=== PATIENT | female | born 1965 | race Hispanic/Latino ===

== ENCOUNTER 2017-09-29 08:31 | Day surgery (SDC) | payer BC ==
[~2017-09-29] VITALS: Ht 144.8 cm; Wt 56.7 kg
[~2017-09-29 08:31] MED LIST: LOVASTATIN10 M1 PO; METFORMIN500 MG PO; PREVACID15 M3 PO; VICTOZA18 MG/3 ML SC
[2017-09-29 12:01] VITALS: BP 106/63
== END 2017-09-29 12:10 | disposition home or self-care (01) | DRG 951 ==
LOC: ENDO 08:31
PROVIDERS: ATTEND Surgery
PROC: 0DBH8ZX Excision of Cecum, Via Natural or Artificial Opening Endoscopic, Diagnostic (ICD-10-PCS; principal; 2017-09-29)
DX: Z12.11 Encounter for screening for malignant neoplasm of colon (principal); K63.5 Polyp of colon; K57.30 Diverticulosis of large intestine without perforation or abscess without bleeding; E11.9 Type 2 diabetes mellitus without complications; I10 Essential (primary) hypertension

== ENCOUNTER 2024-06-12 06:34 | Day surgery (SDC) | payer BC ==
[~2024-06-12] VITALS: Ht 144.8 cm; Wt 59.0 kg
[~2024-06-12 06:34] MED LIST changes: +ACTOS45 MG PO; +CRESTOR40 MG PO; +JARDIANCE25 MG PO; +METFORMIN500 M2 PO; +NOVOLIN N100 UNIT SC; +OMEPRAZOLE DR40 MG PO; +TRESIBA100 UNIT/M SC
[2024-06-12] MEDS ORDERED: FAMOTIDINE 10MG/ML 2ML SDV IV ONE (06:40)
[2024-06-12] MEDS ORDERED: SODIUM CHLORIDE 0.9% 1,000 ML IV ONE (06:40)
[2024-06-12 08:38] VITALS: BP 112/61
[2024-06-12] MEDS ORDERED: PROPOFOL 200 MG/20 ML VIAL IV ONE (12:57)
[2024-06-12] MEDS ORDERED: GLYCOPYRROLATE 0.2 MG/ML IV ONE (12:57)
== END 2024-06-12 08:58 | disposition home or self-care (01) | DRG 951 ==
LOC: ENDO 06:34 → ORM 08:30 → ENDO 08:58 → ORM 12:25
PROVIDERS: ATTEND Internal Medicine Gastroenterology
PROC: 0DJD8ZZ Inspection of Lower Intestinal Tract, Via Natural or Artificial Opening Endoscopic (ICD-10-PCS; principal; 2024-06-12)
PROC: 0DB98ZX Excision of Duodenum, Via Natural or Artificial Opening Endoscopic, Diagnostic (ICD-10-PCS; 2024-06-12)
PROC: 0DB78ZX Excision of Stomach, Pylorus, Via Natural or Artificial Opening Endoscopic, Diagnostic (ICD-10-PCS; 2024-06-12)
PROC: 0DB58ZX Excision of Esophagus, Via Natural or Artificial Opening Endoscopic, Diagnostic (ICD-10-PCS; 2024-06-12)
DX: Z12.11 Encounter for screening for malignant neoplasm of colon (principal); K64.8 Other hemorrhoids; K57.30 Diverticulosis of large intestine without perforation or abscess without bleeding; K21.00 Gastro-esophageal reflux disease with esophagitis, without bleeding; K29.50 Unspecified chronic gastritis without bleeding; K44.9 Diaphragmatic hernia without obstruction or gangrene; E78.5 Hyperlipidemia, unspecified; E11.9 Type 2 diabetes mellitus without complications; Z86.010 Personal history of colon polyps